=== PATIENT | male | born 1960 | race Caucasian/White ===

== ENCOUNTER 2018-03-15 13:03 | Emergency (ER) | payer BC, MEDICARE ==
[2018-03-15 13:39] VITALS: RESP 20; TEMP 98.2
--- NOTE | 2018-03-15 14:33 | CT ---
Date of service: 03/15/2018 PROCEDURE: CT HEAD WITHOUT CONTRAST. HISTORY: R/O Bleed COMPARISON: None available. TECHNIQUE: Axial computed tomography images were obtained through the head/brain without intravenous contrast. Radiation dose: Total exam DLP = 1190.16 mGy-cm. This CT exam was performed using one or more of the following dose reduction techniques: Automated exposure control, adjustment of the mA and/or kV according to patient size, and/or use of iterative reconstruction technique. FINDINGS: HEMORRHAGE: No intracranial hemorrhage. BRAIN: No mass effect or edema. The alonzo-white matter differentiation appears intact. Please note that MRI with diffusion imaging is more sensitive in the detection of acute ischemic event. VENTRICLES: No hydrocephalus. CALVARIUM: Unremarkable. PARANASAL SINUSES: Unremarkable as visualized. No significant inflammatory changes. MASTOID AIR CELLS: Unremarkable as visualized. No inflammatory changes. OTHER FINDINGS: None. IMPRESSION: No acute intracranial pathology identified.
--- NOTE | 2018-03-15 14:35 | C.PDOC ---
History Of Present Illness 57-year-old male, presents to the emergency department s/p fall two days ago. Patient states he was on the stairs and missed a step, causing him to fall backward, and hit his head. Patient states he did pass out at the time of injury. He is complaining of a headache, and pain in the back of his neck. No vomiting, dizziness. Time Seen by Provider: 03/15/18 13:22 Chief Complaint (Nursing): Trauma History Per: Patient History/Exam Limitations: no limitations Onset/Duration Of Symptoms: Days (2) Current Symptoms Are (Timing): Still Present Seizure Or Post-ictal Symptoms: None Severity: Mild - Symptoms Of CVA Recent Head Trauma: Yes Past Medical History Reviewed: Historical Data, Nursing Documentation, Vital Signs Vital Signs: Last Vital Signs Temp 98.2 F 03/15/18 13:27 Pulse 86 03/15/18 13:27 Resp 20 03/15/18 13:27 BP 135/83 03/15/18 13:27 Pulse Ox 96 03/15/18 13:27 - Medical History PMH: Hiatal Hernia Family History: States: No Known Family Hx - Social History Hx Alcohol Use: No Hx Substance Use: No - Immunization History Hx Tetanus Toxoid Vaccination: No Hx Influenza Vaccination: No Hx Pneumococcal Vaccination: No Review Of Systems Constitutional: Negative for: Fever Eyes: Negative for: Vision Change Gastrointestinal: Negative for: Nausea, Vomiting Musculoskeletal: Positive for: Neck Pain Neurological: Positive for: Headache. Negative for: Weakness, Numbness, Incoordination, Confusion, Altered Mental Status, Dizziness Physical Exam - Physical Exam Appears: Non-toxic, No Acute Distress Skin: Warm, Dry, No Rash Head: Tenderness (occipital area), Abrasion, Other (abrasion and tenderness to occipital scalp) Eye(s): bilateral: Normal Inspection, PERRL, EOMI Ear(s): Bilateral: Normal Nose: Normal Oral Mucosa: Moist Lips: Normal Appearing Throat: Normal Neck: No Midline Cervical Tenderness, Paracervical Tenderness, No Step Off Deformity Chest: Symmetrical Cardiovascular: Rhythm Regular, No Murmur Respiratory: Normal Breath Sounds, No Accessory Muscle Use Extremity: Normal ROM, No Deformity Neurological/Psych: Oriented x3, Normal Speech Gait: Steady ED Course And Treatment ECG: Interpreted By Me ECG Rhythm: Sinus Rhythm ECG Interpretation: Normal Rate From EC O2 Sat by Pulse Oximetry: 96 Pulse Ox Interpretation: Normal (RA) - CT Scan/US No standard instances Other Rad Studies (CT/US): Read By Radiologist, Radiology Report Reviewed CT/US Interpretation: FINDINGS: HEMORRHAGE: No intracranial hemorrhage. BRAIN: No mass effect or edema. The alonzo-white matter differentiation appears intact. Please note that MRI with diffusion imaging is more sensitive in the detection of acute ischemic event. VENTRICLES: No hydrocephalus. CALVARIUM: Unremarkable. PARANASAL SINUSES: Unremarkable as visualized. No significant inflammatory changes. MASTOID AIR CELLS: Unremarkable as visualized. No inflammatory changes. OTHER FINDINGS: None. IMPRESSION: No acute intracranial pathology identified. Findings: Straightening of the normal cervical lordosis may be related to muscle spasm or positioning. There is no evidence of acute fracture or subluxation. Multilevel degenerative changes including prominent anterior osteophytes including bridging anterior osteophyte at C5-C6. The prevertebral soft tissues and spinolaminar lines appear intact. The lateral masses are preserved. The dens tip is intact. There is proper alignment of the lateral masses of C1 with the C2 vertebral body. Partial opacification of the right mastoid air cells; correlate clinically for possibility of mastoiditis. Included portions of the thyroid gland appear unremarkable. Included portions of lung apices demonstrates partially imaged 5 mm probable right upper lobe nodule (series 3, image 93). Impression: No evidence of acute fracture or subluxation. Straightening of the normal cervical lordosis may be related to muscle spasm or positioning. Multilevel degenerative changes. Partial opacification of the right mastoid air cells; correlate clinically for possibility of mastoiditis. Partially imaged 5 mm right upper lobe pulmonary nodule. Outpatient CT of the chest may be considered for further evaluation if indicated. Progress Note: Patient alert in no distress. Treated with motrin PO Reassessment Condition: Improved Medical Decision Making Medical Decision Making: Patient fell backwards 2 days ago (+) LOC Disposition Counseled Patient/Family Regarding: Studies Performed, Diagnosis, Need For Followup, Rx Given - Disposition Referrals: [facility] [Outside] [facility] [Outside] Disposition: HOME/ ROUTINE Disposition Time: 16:00 Condition: STABLE Additional Instructions: Follow up with PMD for further evaluation Prescriptions: Naproxen [Naprosyn] 1 tab PO BID PRN #25 tab PRN Reason: Pain Instructions: Closed Head Injury (DC) Forms: [employer] (Congolese) - POA Present On Arrival: None - Clinical Impression Clinical Impression: Head injury - Scribe Statement The provider has reviewed the documentation as recorded by the Scribe (Eron Elizalde) All medical record entries made by the Scribe were at my direction and personally dictated by me. I have reviewed the chart and agree that the record accurately reflects my personal performance of the history, physical exam, medical decision making, and the department course for this patient. I have also personally directed, reviewed, and agree with the discharge instructions and disposition.
--- NOTE | 2018-03-15 14:47 | CT ---
Date of service: 03/15/18 CT cervical spine without IV contrast Indication: Neck pain Comparison: None available Technique: Axial computed tomography images were obtained of the cervical spine without the use of intravenous contrast. Coronal and sagittal reformatted images were created and reviewed. This CT exam was performed using 1 or more of the following dose reduction techniques: Automated exposure control, adjustment of the MAA and/or kV according to patient size, and/or use of iterative reconstruction technique. Radiation dose: Total exam DLP = 620.82 mGy-cm. Findings: Straightening of the normal cervical lordosis may be related to muscle spasm or positioning. There is no evidence of acute fracture or subluxation. Multilevel degenerative changes including prominent anterior osteophytes including bridging anterior osteophyte at C5-C6. The prevertebral soft tissues and spinolaminar lines appear intact. The lateral masses are preserved. The dens tip is intact. There is proper alignment of the lateral masses of C1 with the C2 vertebral body. Partial opacification of the right mastoid air cells; correlate clinically for possibility of mastoiditis. Included portions of the thyroid gland appear unremarkable. Included portions of lung apices demonstrates partially imaged 5 mm probable right upper lobe nodule (series 3, image 93). Impression: No evidence of acute fracture or subluxation. Straightening of the normal cervical lordosis may be related to muscle spasm or positioning. Multilevel degenerative changes. Partial opacification of the right mastoid air cells; correlate clinically for possibility of mastoiditis. Partially imaged 5 mm right upper lobe pulmonary nodule. Outpatient CT of the chest may be considered for further evaluation if indicated.
[2018-03-15 15:31] VITALS: BP 126/85; PULSE 77
[2018-03-15 17:08] VITALS: O2SAT 96
--- NOTE | 2018-03-18 15:01 | CARD ---
APPROVED REPORT Date of service: 03/15/2018 EKG Measurement Heart [id number] <Conclusion> Normal sinus rhythm Normal ECG
== END 2018-03-15 15:31 | disposition home or self-care (01) ==
LOC: C.ER 13:03
DX: S06.9X9A Unspecified intracranial injury with loss of consciousness of unspecified duration, initial encounter (principal); W10.9XXA Fall (on) (from) unspecified stairs and steps, initial encounter; Y92.9 Unspecified place or not applicable